=== PATIENT | male | born 1955 | race Caucasian/White ===

== ENCOUNTER 2018-04-13 11:06 | Day surgery (SDC) | payer OTHER ==
[2018-04-13] MEDS ORDERED: PROPOFOL 40 ML (13:33)
== END 2018-04-13 14:21 | disposition home or self-care (01) ==
LOC: GIL 11:06
DX: Z12.11 Encounter for screening for malignant neoplasm of colon (principal); D12.5 Benign neoplasm of sigmoid colon; K64.8 Other hemorrhoids; I10 Essential (primary) hypertension; E78.5 Hyperlipidemia, unspecified
CPT/HCPCS: 45380; 88305